=== PATIENT | male | born 1985 | race Caucasian/White ===

== ENCOUNTER → 2021-04-21 | Outpatient (CLI) | payer MEDICARE ==
[~2021-04-21] MED LIST: PROHANCE 279.3MG/ML 15ML VIAL As Ordered ONE; PROHANCE 279.3MG/ML 5ML VIAL As Ordered ONE
== END ==
LOC: M RAD 07:23
PROVIDERS: ATTEND Otolaryngology
DX: H93.A2 Pulsatile tinnitus, left ear (principal)
CPT/HCPCS: 70553; A9576